=== PATIENT | female | born 1930 | race Hispanic/Latino ===

== ENCOUNTER 2017-09-16 17:31 | Observation (INO) | payer MEDICARE ==
[2017-09-16] MEDS ORDERED: ASPIRIN PO ONE (18:30)
[2017-09-16 19:28] LABS: Basophils % (Auto) 0.7 % (0.0-1.8); Eosinophils # (Auto) 0.2 K/mm3 (0.0-0.4); Eosinophils % (Auto) 2.1 % (0.0-4.3); Hematocrit 33.8 % (30.3-42.9); Hemoglobin 11.3 gm/dl (10.1-14.3); Lymphocytes # (Auto) 1.6 K/mm3 (1.2-5.4); Lymphocytes % (Auto) 22.3 % (13.4-35.0); Mean Corpuscular HGB Conc 34 % (30-34); Mean Corpuscular Hemoglobin 28 pg (28-32); Mean Corpuscular Volume 83 fl (79-97); Monocytes # (Auto) 0.5 K/mm3 (0.0-0.8); Platelet Count 166 K/mm3 (140-440); Red Blood Count 4.08 M/mm3 (3.65-5.03)
[2017-09-16 19:59] LABS: BUN/Creatinine Ratio 17; Blood Urea Nitrogen 15 mg/dL (7-17); Calcium 9.5 mg/dL (8.4-10.2); Hemolysis Index 0
--- NOTE | 2017-09-16 22:46 | Emergency Department Report ---
ED Chest Pain HPI - General Chief Complaint: Chest Pain Stated Complaint: CHEST PAIN/OFF AND ON Time Seen by Provider: 09/16/17 22:36 Source: patient, EMS Mode of arrival: Wheelchair Limitations: Physical Limitation - History of Present Illness Initial Comments: Patient is 86 years old female with history of coronary artery disease, status post CABG, hypertension and diabetes. Duration presented to the ER via EMS from our primary care doctor office after she reported chest pain. Patient stated that her chest pain started yesterday, heaviness to the left side of his chest radiated to her left upper arm. Patient also stated that she's been having some shortness of breath is that. She denied any fever or cough. MD Complaint: chest pain -: Last night Onset: during rest Pain Location: left chest Pain Radiation: LUE Severity: moderate Severity scale (0 -10): 5 Quality: heaviness - Related Data Allergies Allergy/AdvReac Type Severity Reaction Status Date / Time No Known Allergies Allergy Verified 09/16/17 22:38 Heart Score - HEART Score History: Moderately suspicious EKG: Non-specific Age: > 65 Risk factors: > 3 risk factors or hx of atherosclerotic disease Troponin: < normal limit HEART Score: 6 - Critical Actions Critical Actions: 4-6 pts:12-16.6% risk of adverse cardiac event. Should be admitted ED Review of Systems ROS: Stated complaint: CHEST PAIN/OFF AND ON Other details as noted in HPI Comment: All other systems reviewed and negative Constitutional: denies: chills, diaphoresis Respiratory: orthopnea, shortness of breath, SOB with exertion. denies: cough, wheezing Cardiovascular: chest pain, dyspnea on exertion, orthopnea, paroxysmal nocturnal dyspnea. denies: palpitations, edema, syncope Gastrointestinal: denies: abdominal pain, nausea, vomiting Genitourinary: denies: urgency, dysuria, frequency, hematuria Musculoskeletal: denies: back pain Neurological: denies: headache, weakness, numbness, paresthesias ED Past Medical Hx - Past Medical History Previous Medical History?: Yes Hx Hypertension: Yes Hx Heart Attack/AMI: Yes Hx Diabetes: Yes Hx Arthritis: Yes Additional medical history: CAD, MEMORY LOSS - Surgical History Past Surgical History?: Yes Hx Open Heart Surgery: Yes - Social History Smoking Status: Former Smoker Substance Use Type: Prescribed ED Physical Exam - General Limitations: Physical Limitation General appearance: alert, in no apparent distress - Head Head exam: Present: atraumatic, normocephalic, normal inspection - Eye Eye exam: Present: normal appearance, PERRL - ENT ENT exam: Present: normal exam, normal orophraynx, mucous membranes moist - Neck Neck exam: Present: normal inspection, full ROM. Absent: tenderness, meningismus, lymphadenopathy, thyromegaly - Respiratory Respiratory exam: Present: normal lung sounds bilaterally. Absent: respiratory distress, wheezes, rales, rhonchi, stridor, accessory muscle use, decreased breath sounds, prolonged expiratory - Cardiovascular Cardiovascular Exam: Present: irregular rhythm. Absent: systolic murmur, diastolic murmur - GI/Abdominal GI/Abdominal exam: Present: soft, normal bowel sounds. Absent: distended, tenderness, guarding, rebound, rigid, organomegaly, mass, bruit, pulsatile mass , hernia - Extremities Exam Extremities exam: Present: normal inspection, full ROM, normal capillary refill - Back Exam Back exam: Present: normal inspection, full ROM. Absent: tenderness, CVA tenderness (R), CVA tenderness (L), muscle spasm, paraspinal tenderness, vertebral tenderness, rash noted - Neurological Exam Neurological exam: Present: alert, oriented X3, CN II-XII intact, normal gait - Skin Skin exam: Present: warm, intact, normal color ED Course Vital Signs 09/16/17 18:24 Temperature 98 F Pulse Rate 76 Respiratory 20 Rate Blood Pressure 123/68 O2 Sat by Pulse 98 Oximetry ED Medical Decision Making - Lab Data Result diagrams: 09/16/17 18:57 09/16/17 18:57 - EKG Data -: EKG Interpreted by Me Rate: normal - EKG Data 09/16/17 22:46 Atrial fibrillation. - Medical Decision Making I discussed the patient is Dr. Starr Guo, she agreed to admit the patient to her service. Critical care attestation.: If time is entered above; I have spent that time in minutes in the direct care of this critically ill patient, excluding procedure time. ED Disposition Clinical Impression: Chest pain, CHF exacerbation Disposition: OP ADMIT IP TO THIS HOSP Is pt being admited?: Yes Condition: Stable Instructions: Chest Pain (ED)
[2017-09-16] MEDS ORDERED: LASIX IV ONE (23:16)
--- NOTE | 2017-09-17 00:19 | XRay Report ---
FINAL REPORT PROCEDURE: XR CHEST 1V AP TECHNIQUE: Chest radiograph anteroposterior view. CPT 58069 HISTORY: chest pain COMPARISON: No prior studies are available for comparison. FINDINGS: Heart: Heart is enlarged. There has been open heart surgery. Mediastinum/Vessels: Normal. Lungs/Pleural space: Lungs are expanded. There are no infiltrates, effusions or pneumothoraces.. Bony thorax: No acute osseous abnormality. Life support devices: None. IMPRESSION: Heart is enlarged. There has been open heart surgery. Lungs are expanded. There are no infiltrates, effusions or pneumothoraces.. .
--- NOTE | 2017-09-17 00:31 | History and Physical Report ---
History of Present Illness Date of examination: 09/17/17 History of present illness: 86-year-old woman with a history of hypertension, diabetes, coronary artery disease, memory problems comes emergency room with complaints of chest pain. The patient cannot recall when it started, it's located in the left chest which she describes as a sharp pain, intermittent in nature, unable to say how long it last for, radiating into the left arm, intensity 5/10, worse with deep breath. Admits to shortness of breath, no nausea vomiting, diaphoresis or palpitation, cant Recall having a stress status Review of systems Constitutional: no weight loss, chills Ears, eyes, nose, mouth and throat: no nasal congestion, no nasal discharge, no sinus pressure, no vision change, no red eye. Neck: No neck pain or rigidity. Cardiovascular: no palpitations Respiratory: No cough Gastrointestinal: no abdominal pain, hematochezia Genitourinary : no dysuria, frequency , no hematuria Musculoskeletal: no joint swelling or muscle ache Integumentary: no rash, no pruritis Neurological: no parathesias, no numbness, no focal weakness Endocrine: no cold or heat intolerance, no polyuria or polydipsia Hematologic/Lymphatic: no easy bruising, no easy bleeding, no gland swelling Allergic/Immunologic: no urticaria, no angioedema. PAST MEDICAL HISTORY:hypertension, diabetes, coronary artery disease PAST SURGICAL HISTORY: CABG, partial hysterectomy SOCIAL HISTORY: Denies alcohol, tobacco, drugs FAMILY HISTORY: Hypertension Medications and Allergies Allergies Allergy/AdvReac Type Severity Reaction Status Date / Time No Known Allergies Allergy Verified 09/16/17 22:38 Home Medications Medication Instructions Recorded Confirmed Last Taken Type Apixaban [Eliquis] 5 mg PO Q12HR #60 tablet 09/18/17 Unknown Rx Aspirin [Aspirin BABY CHEW TAB] 81 mg PO QDAY #30 tab.chew 09/18/17 Unknown Rx AtorvaSTATin [Lipitor] 40 mg PO QHS #30 tablet 09/18/17 Unknown Rx Lisinopril [Zestril TAB] 5 mg PO QDAY #30 tablet 09/18/17 Unknown Rx Metoprolol [Lopressor TAB] 12.5 mg PO BID #60 tablet 09/18/17 Unknown Rx Exam - Physical Exam Narrative exam: Gen. appearance: Patient lying in bed, no apparent distress HEENT: Normocephalic, atraumatic, pupils equally round and reactive to light, extraocular movement intact, and no sclericterus,. No JVD or thyromegaly or nodule,neck supple, no carotid bruit ,mucous membranes moist, no exudate or erythema Heart: S1, S2, regular rate and rhythm Lungs: Clear to auscultation bilaterally, breathing comfortable Abdomen: Positive bowel sounds, nontender, nondistended, no organomegaly Extremity: No edema, cyanosis, clubbing Skin: No rash, nodules, warm, dry Neuro: Oriented 3, cranial nerves II-12 intact, speech is fluent, motor and sensory intact - Constitutional Vitals: Temp Pulse Resp BP Pulse Ox 98 F 76 20 123/68 98 09/16/17 18:24 09/16/17 18:24 09/16/17 18:24 09/16/17 18:24 09/16/17 18:24 Results - Labs CBC & Chem 7: 09/18/17 05:10 09/18/17 05:10 Labs: Abnormal lab results 09/16/17 09/16/17 09/16/17 Range/Units 18:57 18:57 21:45 RDW 21.0 H (13.2-15.2) % Glucose 144 H (65-100) mg/dL NT-Pro-B Natriuret Pep 3858 H (0-900) pg/mL - Imaging and Cardiology EKG: image reviewed Chest x-ray: image reviewed Assessment and Plan Assessment Unstable angina Coronary artery disease Hypertension Diabetes Plan Admit to medicine Check cardiac enzymes, consult cardiology Check fingersticks initiated insulin sliding scale Continue appropriate outpatient medications DVT prophylaxis
[2017-09-17] MEDS ORDERED: D50W (25GM) Syringe IV PRN (01:14)
[2017-09-17] MEDS ORDERED: TYLENOL PO PRN (01:14)
[2017-09-17] MEDS ORDERED: SODIUM CHLORIDE FLUSH SYRINGE 10 ML IV PRN (01:14)
[2017-09-17] MEDS ORDERED: ZOFRAN IV PRN (01:14)
[2017-09-17 05:46] LABS: Basophils % (Auto) 0.8 % (0.0-1.8); Eosinophils # (Auto) 0.2 K/mm3 (0.0-0.4); Eosinophils % (Auto) 3.1 % (0.0-4.3); Hematocrit 33.3 % (30.3-42.9); Hemoglobin 11.2 gm/dl (10.1-14.3); Lymphocytes # (Auto) 1.5 K/mm3 (1.2-5.4); Lymphocytes % (Auto) 25.1 % (13.4-35.0); Mean Corpuscular HGB Conc 34 % (30-34); Mean Corpuscular Hemoglobin 28 pg (28-32); Mean Corpuscular Volume 83 fl (79-97); Monocytes # (Auto) 0.5 K/mm3 (0.0-0.8); Monocytes % (Auto) 8.9 % (0.0-7.3); Platelet Count 149 K/mm3 (140-440); Red Blood Count 4.02 M/mm3 (3.65-5.03)
[2017-09-17 05:48] LABS: Red Cell Distribution Width 20.7 % (13.2-15.2)
[2017-09-17 06:00] LABS: Calcium 9.5 mg/dL (8.4-10.2)
[2017-09-17] MEDS ORDERED: LEXISCAN IV ONE ×2 (09:01→09:05)
--- NOTE | 2017-09-17 09:33 | Consultation ---
History of Present Illness Consult date: 09/17/17 Requesting physician: MARISELA [place] Consult reason: chest pain History of present illness: This is a 86-year-old female with history of hypertension hyperlipidemia coronary artery disease status post myocardial infarction with PCI to LAD in 2000 patient is a poor historian. Patient states saw a physician yesterday was having chest pain sharp in nature intermediately for last few days not exertional. Patient states that also have difficulty eating and we have drink water and would have chest pain and then with water it would go away. No aggravating or relieving factors with exertional type chest pain sharp in nature no radiation on the left-sided chest underneath her breast no nausea no vomiting no syncope patient takes care of her grandson. Patient was admitted for chest pain with negative troponins here for stress test Past History Past Medical History: CAD (PC had LAD in 2000), hypertension, hyperlipidemia Past Surgical History: hysterectomy Social history: denies: no significant social history Family history: denies: no significant family history Medications and Allergies Allergies Allergy/AdvReac Type Severity Reaction Status Date / Time No Known Allergies Allergy Verified 09/16/17 22:38 Home Medications Medication Instructions Recorded Confirmed Last Taken Type No Known Home Medications [No 09/17/17 09/17/17 Unknown History Reported Home Medications] Active Meds: Active Medications Acetaminophen (Tylenol) 650 mg PO Q4H PRN PRN Reason: Pain MILD(1-3)/Fever >100.5/MEYER Dextrose (D50w (25gm) Syringe) 50 ml IV PRN PRN PRN Reason: Hypoglycemia Enoxaparin Sodium (Lovenox) 30 mg SUB-Q QDAY [place] Ondansetron HCl (Zofran) 4 mg IV Q8H PRN PRN Reason: Nausea And Vomiting Sodium Chloride (Sodium Chloride Flush Syringe 10 Ml) 10 ml IV BID WESTON Sodium Chloride (Sodium Chloride Flush Syringe 10 Ml) 10 ml IV PRN PRN PRN Reason: LINE FLUSH Review of Systems All systems: negative (as per hpi) Physical Examination Vital Signs Temp Pulse Resp BP Pulse Ox 98 F 76 20 123/68 98 09/16/17 18:24 09/16/17 18:24 09/16/17 18:24 09/16/17 18:24 09/16/17 18:24 General appearance: no acute distress, well-nourished HEENT: Positive: PERRL, Mucus Membranes Moist Neck: Positive: neck supple, trachea midline Cardiac: Positive: Reg Rate and Rhythm, S1/S2. Negative: Audible Murmur Lungs: Positive: clear to auscultation, Normal Breath Sounds Neuro: Positive: Grossly Intact Abdomen: Positive: Soft, Active Bowel Sounds. Negative: Tender, Distended Female genitourinary: deferred Skin: Positive: Clear Incision: Cardiac Cath Site Musculoskeletal: No Pain, Normal Range of Motion Extremities: Present: normal. Absent: edema Results 09/17/17 04:54 09/17/17 04:54 CBC 09/16/17 09/17/17 Range/Units 18:57 04:54 WBC 7.2 5.9 (4.5-11.0) K/mm3 RBC 4.08 4.02 (3.65-5.03) M/mm3 Hgb 11.3 11.2 (10.1-14.3) gm/dl Hct 33.8 33.3 (30.3-42.9) % Plt Count 166 149 (140-440) K/mm3 Lymph # 1.6 1.5 (1.2-5.4) K/mm3 [place] # 0.5 0.5 (0.0-0.8) K/mm3 Eos # 0.2 0.2 (0.0-0.4) K/mm3 Baso # 0.0 0.0 (0.0-0.1) K/mm3 Comprehensive Metabolic Panel 09/16/17 09/17/17 Range/Units 18:57 04:54 Sodium 139 141 (137-145) mmol/L Potassium 4.3 3.9 (3.6-5.0) mmol/L Chloride 101.0 101.1 (98-107) mmol/L Carbon Dioxide 23 22 (22-30) mmol/L BUN 15 16 (7-17) mg/dL Creatinine 0.9 0.9 (0.7-1.2) mg/dL Glucose 144 H 159 H (65-100) mg/dL Calcium 9.5 9.5 (8.4-10.2) mg/dL - Imaging and Cardiology Echo: pending EKG interpretations - Telemetry EKG Rhythm: Sinus Rhythm (sinus rhythm with mobitz type I LVH nonspecific ST-T's ) Assessment and Plan Chest pain possible GI Hypertension Hyperlipidemia Recommend following up stress and echo restart aspirin statin therapy and imdur pt states taking, hold off lopressor in view of mobitz type 1
[2017-09-17] MEDS ORDERED: IMDUR PO SCH (10:00)
[2017-09-17] MEDS ORDERED: LOVENOX SUB-Q SCH (10:00)
--- NOTE | 2017-09-17 10:07 | Progress Note ---
Assessment and Plan Assessment and plan: Chest pain. Cardiology following. Follow-up serial EKG and cardiac enzymes. Stress test and echocardiogram pending. Coronary artery disease. As above. Hypertension. Resume antihypertensive medications. Diabetes mellitus type 2. Continue Accu-Cheks and sliding scale insulin. Hyperlipidemia. Continue atorvastatin. History Interval history: No new issues overnight. Hospitalist Physical - Constitutional Vitals: Temp Pulse Resp BP Pulse Ox 98.4 F 95 H 16 140/48 93 09/17/17 07:23 09/17/17 07:23 09/17/17 07:23 09/17/17 07:23 09/17/17 07:23 General appearance: Present: no acute distress, well-nourished - EENT Eyes: Present: PERRL, EOM intact ENT: hearing intact, clear oral mucosa, dentition normal - Neck Neck: Present: supple, normal ROM - Respiratory Respiratory effort: normal Respiratory: bilateral: CTA - Cardiovascular Rhythm: regular Heart Sounds: Present: S1 & S2. Absent: gallop, rub - Extremities Extremities: no ischemia, No edema, Full ROM - Abdominal General gastrointestinal: soft, non-tender, non-distended, normal bowel sounds - Integumentary Integumentary: Present: clear, warm, dry - Neurologic Neurologic: CNII-XII intact, moves all extremities Results - Labs CBC & Chem 7: 09/17/17 04:54 09/17/17 04:54 Labs: Laboratory Last Values WBC 5.9 K/mm3 (4.5-11.0) 09/17/17 04:54 RBC 4.02 M/mm3 (3.65-5.03) 09/17/17 04:54 Hgb 11.2 gm/dl (10.1-14.3) 09/17/17 04:54 Hct 33.3 % (30.3-42.9) 09/17/17 04:54 MCV 83 fl (79-97) 09/17/17 04:54 MCH 28 pg (28-32) 09/17/17 04:54 MCHC 34 % (30-34) 09/17/17 04:54 RDW 20.7 % (13.2-15.2) H 09/17/17 04:54 Plt Count 149 K/mm3 (140-440) 09/17/17 04:54 Lymph % (Auto) 25.1 % (13.4-35.0) 09/17/17 04:54 [place] % (Auto) 8.9 % (0.0-7.3) H 09/17/17 04:54 Eos % (Auto) 3.1 % (0.0-4.3) 09/17/17 04:54 Baso % (Auto) 0.8 % (0.0-1.8) 09/17/17 04:54 Lymph # 1.5 K/mm3 (1.2-5.4) 09/17/17 04:54 [place] # 0.5 K/mm3 (0.0-0.8) 09/17/17 04:54 Eos # 0.2 K/mm3 (0.0-0.4) 09/17/17 04:54 Baso # 0.0 K/mm3 (0.0-0.1) 09/17/17 04:54 Seg Neutrophils % 62.1 % (40.0-70.0) 09/17/17 04:54 Seg Neutrophils # 3.7 K/mm3 (1.8-7.7) 09/17/17 04:54 D-Dimer 476.75 ng/mlDDU (0-234) H 09/17/17 01:26 Sodium 141 mmol/L (137-145) 09/17/17 04:54 Potassium 3.9 mmol/L (3.6-5.0) 09/17/17 04:54 Chloride 101.1 mmol/L (98-107) 09/17/17 04:54 Carbon Dioxide 22 mmol/L (22-30) 09/17/17 04:54 Anion Gap 22 mmol/L 09/17/17 04:54 BUN 16 mg/dL (7-17) 09/17/17 04:54 Creatinine 0.9 mg/dL (0.7-1.2) 09/17/17 04:54 Estimated GFR 60 ml/min 09/17/17 04:54 BUN/Creatinine Ratio 18 % 09/17/17 04:54 Glucose 159 mg/dL (65-100) H 09/17/17 04:54 POC Glucose 189 (70-105) H 09/17/17 06:45 Calcium 9.5 mg/dL (8.4-10.2) 09/17/17 04:54 Troponin T < 0.010 ng/mL (0.00-0.029) 09/17/17 00:12 NT-Pro-B Natriuret Pep 3858 pg/mL (0-900) H 09/16/17 21:45
--- NOTE | 2017-09-17 12:31 | Event Note ---
Date: 09/17/17 Pt's granddaughter, Claire Marie, spoken with via telephone. She reports that pt underwent CABG x 3 at [facility] in 1968. She reports that pt has not seen any doctors in many years and denies any knowledge of prior atrial fibrillation, atrial flutter, heart failure, CVA, bleeding. She states that pt lives alone and is very independent with no ambulatory issues or physical limitations. Systemic anticoagulation is recommended in setting of atrial fibrillation. Indications, potential risks and benefits of systemic AC reviewed with pt and pt's granddaughter and they are agreeable to correction OAC. Will initiate Eliquis 5mg BID. Await echo results. Lexiscan MPI stress test this AM was negative for ischemia, EF 35-40%. Repeat labwork in AM. Elian ALCANTAR NP / DR. DORSEY
[2017-09-17] MEDS: ZESTRIL PO SCH (13:59)
[2017-09-17] MEDS: LOPRESSOR PO SCH ×2 (13:59→22:08)
[2017-09-17] MEDS: LOVENOX SUB-Q SCH (13:59)
[2017-09-17] MEDS: BABY ASPIRIN PO SCH (13:59)
[2017-09-17] MEDS: ELIQUIS PO SCH (22:07)
[2017-09-17] MEDS: SODIUM CHLORIDE FLUSH SYRINGE 10 ML IV SCH (22:08)
[2017-09-18 05:55] LABS: Basophils # (Auto) 0.1 K/mm3 (0.0-0.1); Basophils % (Auto) 0.9 % (0.0-1.8); Eosinophils # (Auto) 0.2 K/mm3 (0.0-0.4); Eosinophils % (Auto) 3.2 % (0.0-4.3); Hemoglobin 11.1 gm/dl (10.1-14.3); Lymphocytes # (Auto) 1.7 K/mm3 (1.2-5.4); Lymphocytes % (Auto) 29.7 % (13.4-35.0); Mean Corpuscular HGB Conc 33 % (30-34); Mean Corpuscular Hemoglobin 27 pg (28-32); Mean Corpuscular Volume 84 fl (79-97); Monocytes # (Auto) 0.5 K/mm3 (0.0-0.8); Monocytes % (Auto) 8.8 % (0.0-7.3); Platelet Count 152 K/mm3 (140-440); Red Blood Count 4.07 M/mm3 (3.65-5.03)
[2017-09-18 06:04] LABS: Red Cell Distribution Width 20.1 % (13.2-15.2)
[2017-09-18 06:15] LABS: BUN/Creatinine Ratio 21; Blood Urea Nitrogen 17 mg/dL (7-17); Calcium 9.3 mg/dL (8.4-10.2); Hemolysis Index 3
[2017-09-18] MEDS: BABY ASPIRIN PO SCH (10:21)
[2017-09-18] MEDS: SODIUM CHLORIDE FLUSH SYRINGE 10 ML IV SCH ×2 (10:21→11:20)
[2017-09-18] MEDS: ELIQUIS PO SCH (10:22)
[2017-09-18] MEDS: LOVENOX SUB-Q SCH (10:23)
[2017-09-18] MEDS: ZESTRIL PO SCH (10:24)
--- NOTE | 2017-09-18 10:57 | Discharge Summary ---
<CONNER YARBROUGH - Last Filed: 09/18/17 14:04> Providers - Providers Date of Admission: 09/17/17 00:31 Attending physician: JAYLENE CANO 09/17/17 01:14 Consult to Physician [CONS] Routine Comment: Consulting Provider: BARBARA RAMEY Physician Instructions: Reason For Exam: ua 09/17/17 04:20 Consult to Case Management [CONS] Routine Services Needed at Discharge: Drawer In Stitch Bonding Machine Notified:: Family issues Was contact made?: No Primary care physician: ABIGAIL SAVAGE Hospitalization Condition: Stable Hospital course: Patient is an 86-year-old woman who presented to the emergency department with complaints of chest pain. Patient underwent cardiac workup which began with serial cardiac enzymes that were negative. Cardiology services was consulted and Ekg revealed afib with controlled rate, stress test showed no significant ischemia, echo ef 35-40% with anterior wall hypokinesis. Patient was initiated on Eliquis 5mg BID along with Lopressor, lisinopril, aspirin and statin therapy. D-dimer was elevated and CTA chest revealed Patient was clinically stable for discharge from cardiac standpoint with no further workup recommended at this time and instructed to follow up with primary care provider within 1 week of discharged. Discharge diagnoses Chest pain Hypertension Diabetes mellitus type 2 Hyperlipidemia Atrial fibrillation Disposition: - TO HOME OR SELFCARE Time spent for discharge: 32 minutes Core Measure Documentation - Palliative Care Palliative Care/ Comfort Measures: Not Applicable - Core Measures Any of the following diagnoses?: none Exam - Constitutional Vitals: Temp Pulse Resp BP Pulse Ox 98.3 F 68 18 129/60 94 09/18/17 07:34 09/18/17 07:34 09/18/17 07:34 09/18/17 07:34 09/18/17 07:34 General appearance: Present: no acute distress, well-nourished - EENT Eyes: Present: PERRL ENT: hearing intact, clear oral mucosa - Neck Neck: Present: supple, normal ROM - Respiratory Respiratory effort: normal Respiratory: bilateral: CTA - Cardiovascular Heart Sounds: Present: S1 & S2. Absent: rub, click - Extremities Extremities: pulses symmetrical, No edema Peripheral Pulses: within normal limits - Abdominal General gastrointestinal: Present: soft, non-tender, non-distended, normal bowel sounds - Integumentary Integumentary: Present: clear, warm, dry - Musculoskeletal Musculoskeletal: gait normal, strength equal bilaterally - Psychiatric Psychiatric: appropriate mood/affect, intact judgment & insight - Neurologic Neurologic: CNII-XII intact, moves all extremities Plan Follow up with: ABIGAIL SAVAGE MD [Primary Care Provider] - 3-5 Days RENATA LOZADA NP [Advanced Practice Nurse] - 7 Days ([facility], [address], Renata Lozada NP, on 09/30/2017 @ 1:00PM. ) Prescriptions: AtorvaSTATin [Lipitor] 40 mg PO QHS #30 tablet Apixaban [Eliquis] 5 mg PO Q12HR #60 tablet Aspirin [Aspirin BABY CHEW TAB] 81 mg PO QDAY #30 tab.chew Lisinopril [Zestril TAB] 5 mg PO QDAY #30 tablet Metoprolol [Lopressor TAB] 12.5 mg PO BID #60 tablet Pending Studies DC pending negative CTA chest <JAYLENE CANO - Last Filed: 09/19/17 07:41> Providers - Providers Date of Admission: 09/17/17 00:31 Attending physician: JAYLENE CANO 09/17/17 01:14 Consult to Physician [CONS] Routine Comment: Consulting Provider: BARBARA RAMEY Physician Instructions: Reason For Exam: ua 09/17/17 04:20 Consult to Case Management [CONS] Routine Services Needed at Discharge: Drawer In Stitch Bonding Machine Notified:: Family issues Was contact made?: No Primary care physician: ABIGAIL SAVAGE Hospitalization Hospital course: I saw and evaluated the patient. I agree with the findings and the plan of care as documented in the Nurse Practitioner's~note, with the following corrections and additions. Exam - Constitutional Vitals: Temp Pulse Resp BP Pulse Ox 97.6 F 55 L 18 127/58 97 09/18/17 17:21 09/18/17 17:21 09/18/17 17:21 09/18/17 17:21 09/18/17 17:21
--- NOTE | 2017-09-18 11:14 | Progress Note ---
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 Pt for chest CTA today to r/o PE. Currently stable cardiac status. Cont present cardiac regimen, including ASA, lipitor, eliquis, lopressor, lisinopril. Pending chest CTA is negative for PE, pt may discharge home from cardiology standpoint. Follow up in our [place] office with Renata Pruett NP, on 09/30/2017 @ 1:00PM. The patient has been seen in conjunction with Dr. Rivera who agrees with the assessment and plan of care. Subjective Date of service: 09/18/17 Principal diagnosis: AFib, cp Interval history: Pt sitting comfortably at bedside, no current cardiac complaints. telemetry reviewed - pt remains in AFib, had SVR overnight and this AM while sleeping, currently with HR in 100s with ambulation around the room. BPs stable. Pt states she is ready to go home today. Objective Last Vital Signs Temp 98.3 F 09/18/17 07:34 Pulse 68 09/18/17 07:34 Resp 18 09/18/17 07:34 BP 129/60 09/18/17 07:34 Pulse Ox 94 09/18/17 07:34 - Physical Examination General: No Apparent Distress HEENT: Positive: PERRL, Mucus Membranes Moist Neck: Positive: neck supple, trachea midline Cardiac: Positive: irregularly irregular, S1/S2 Lungs: Positive: clear to auscultation Neuro: Positive: Grossly Intact Abdomen: Positive: Soft, Active Bowel Sounds. Negative: Tender, Distended Skin: Positive: Clear Incision: Cardiac Cath Site Musculoskeletal: No Pain, Normal Range of Motion Extremities: Present: normal. Absent: edema - Labs and Meds CBC 09/18/17 Range/Units 05:10 WBC 5.8 (4.5-11.0) K/mm3 RBC 4.07 (3.65-5.03) M/mm3 Hgb 11.1 (10.1-14.3) gm/dl Hct 34.0 (30.3-42.9) % Plt Count 152 (140-440) K/mm3 Lymph # 1.7 (1.2-5.4) K/mm3 [place] # 0.5 (0.0-0.8) K/mm3 Eos # 0.2 (0.0-0.4) K/mm3 Baso # 0.1 (0.0-0.1) K/mm3 Comprehensive Metabolic Panel 09/18/17 Range/Units 05:10 Sodium 139 (137-145) mmol/L Potassium 4.1 (3.6-5.0) mmol/L Chloride 98.7 (98-107) mmol/L Carbon Dioxide 24 (22-30) mmol/L BUN 17 (7-17) mg/dL Creatinine 0.8 (0.7-1.2) mg/dL Glucose 168 H (65-100) mg/dL Calcium 9.3 (8.4-10.2) mg/dL - Imaging and Cardiology EKG: image reviewed Echo: report reviewed (EF 30-35%, LA mildly dilated, RV systolic function mod reduced, mod MR, mild TR, RVSP 23mmHg) - Telemetry EKG Rhythm: Atrial Fibrillation
[2017-09-18] MEDS: LOPRESSOR PO SCH (11:23)
--- NOTE | 2017-09-18 13:11 | Treadmill Report ---
PROCEDURE: NUCLEAR STUDY READING PHYSICIAN: Adelso Galeas MD REASON FOR STUDY: Chest pain. IMAGING PROTOCOL: The patient received 10 mCi of Technetium 99m Tetrofosmin for resting image and 28 mCi of Technetium 99m Tetrofosmin for stress imaging. The imaging for the whole procedure was completed 30-90 minutes following the initial injection of Technetium 99m tetrofosmin. The SPECT imaging in the 180 degree arc was performed in the right anterior oblique projection. Computerized reconstruction of the images was performed for analysis. IMAGING RESULTS: Normal cavity size from stress to rest. Normal distribution of radionuclide in the anterior, inferior, septal, and apical regions. Gated SPECT was not done secondary to atrial fibrillation. SUMMARY: 1. Negative Lexiscan EKG. 2. No significant stress-induced ischemia with normal perfusion in anterior, inferior, septal, and apical regions. Gating was not done secondary to atrial fibrillation and suggests an echocardiogram for quantification LV function. JOB# [id number] PIERRE/RENETTA
[2017-09-18 17:48] VITALS: BP 127/58
--- NOTE | 2017-09-18 18:15 | Cat Scan Report ---
FINAL REPORT EXAM: CT ANGIO CHEST HISTORY: elevated d dimer TECHNIQUE: CT chest CT angiogram with reconstructions PRIORS: None. FINDINGS: There is no evidence of filling defect within the central pulmonary vasculature to suggest the presence of acute pulmonary embolus. No evidence of mediastinal pathologic lymph node enlargement Heart and great vessels are unremarkable. The aorta is normal in caliber. No focal pulmonary infiltrate identified. No pleural fluid collection seen. No acute pulmonary abnormality noted. Visualized portion of the upper abdomen demonstrates no acute change. IMPRESSION: Negative. No CT evidence of acute pulmonary embolus
--- NOTE | 2017-09-25 16:34 | Query- Chest Pain ---
Nicholas Watters____Freddy Date: 09/25/17 Mickey/CDS:___Sheila / Rad Phone#:___[phone] Exercise your independent professional judgment when responding to query. Questions asked do not imply a particular answer is desired or expected. We greatly appreciate your clarification on this issue. Clinical Documentation States: 86 year old female was admitted on 09/17/17 The discharge summary (Rolando) states " Patient is an 86-year-old woman who presented to the emergency department with complaints of chest pain. Patient underwent cardiac workup which began with serial cardiac enzymes that were negative. Cardiology services was consulted and Ekg revealed afib with controlled rate, stress test showed no significant ischemia, echo ef 35-40% with anterior wall hypokinesis. Discharge diagnoses Chest pain " Please document the etiology of Chest Pain: [ ] Myocardial Infarction [ ] Pneumonia [ ] Mediastinitis [ ] Costochondritis [ ] Pulmonary Embolism [ ] Coronary Artery Disease [ ] GERD [ ] Other: [ ] Comment/Explanation: Present on Admission: [ ] Yes (Y) [ ] Clinically undeterminable (W) [ ] No(N) Please document response in your Progress Notes and/or Discharge Summary and indicate if the condition was present on admission. KYLER
--- NOTE | 2017-09-25 16:38 | Query- Heart Failure ---
Nicholas Watters____Freddy Date:____09/25/17 Patient Admitting Representative/CDS:____Sheila / Rad Phone#:___[phone] Exercise your independent professional judgment when responding to query. Questions asked do not imply a particular answer is desired or expected. We greatly appreciate your clarification on this issue. Clinical Documentation States: 86 year old female was admitted on 09/17/17 The discharge summary (Rolando) states " Patient is an 86-year-old woman who presented to the emergency department with complaints of chest pain. Cardiology services was consulted and Ekg revealed afib with controlled rate, stress test showed no significant ischemia, echo ef 35-40% with anterior wall hypokinesis. " Clinical Findings Show: BNP: 3858 Medications: IV flurosemide If possible, Please Clarify if you mean: Acuity: [ ] Acute [ ] Acute on Chronic [ ] Chronic Type: [ ] Systolic Heart Failure [ ] Diastolic Heart Failure [ ] Combined Heart Failure [ ] Other: Present on Admission: [ ] Yes (Y) [ ] Clinically undeterminable (W) [ ] No (N) Please also document response in your Progress Notes and/or Discharge Summary and indicate if the condition was present on admission. FRANKOD
== END 2017-09-18 18:24 | disposition home or self-care (01) ==
LOC: ED 17:31 → 4A 09-17 00:31 → INTOOBSV 09-17 00:31
PROVIDERS: ADMIT Internal Medicine; ATTEND Hospitalist
DX: I25.110 Atherosclerotic heart disease of native coronary artery with unstable angina pectoris (principal); I10 Essential (primary) hypertension; E11.9 Type 2 diabetes mellitus without complications; I25.2 Old myocardial infarction; Z87.891 Personal history of nicotine dependence; Z95.1 Presence of aortocoronary bypass graft; Z82.49 Family history of ischemic heart disease and other diseases of the circulatory system; Z90.711 Acquired absence of uterus with remaining cervical stump
CPT/HCPCS: 36415; 71045; 71275; 78452; 80048; 82962; 83880; 84484; 85025; 85379; 93005; 93010; 93017; 93306; 96372; 96374; 99285; A9270; A9502; G0378; J1650; J1940; J2785; Q9967

== ENCOUNTER 2018-11-17 01:09 | Emergency (ER) | payer MEDICARE ==
[2018-11-17] MEDS ORDERED: ADRENALIN ONE (01:10)
--- NOTE | 2018-11-17 01:33 | Emergency Department Report ---
HPI - General Time Seen by Provider: 11/17/18 01:30 - HPI HPI: Room 21 The patient is an 87-year-old female presenting with chief complaint of cardiac arrest. Per EMS the patient told her granddaughter she is about to and then was witnessed taking her last breath. EMS was called and arrived on scene at 00:46. Per EMS the patient was in asystole and remained in asystole throughout transport. Patient was intubated with a Aki airway by EMS. Upon arrival to the ED the Aki airway was removed and the patient was intubated with a 7.0 ET tube by myself. ACLS protocols were continued without return of spontaneous circulation Location: Cardiovascular system Duration: [See above] Quality: [See above] Severity: [See above] Modifying factors: [see above] Context: [see above] Mode of transportation: [not driving] ED Past Medical Hx - Past Medical History Hx Hypertension: Yes Hx Heart Attack/AMI: Yes Hx Congestive Heart Failure: Yes Hx Diabetes: Yes Hx Arthritis: Yes Additional medical history: CAD, MEMORY LOSS - Surgical History Hx Open Heart Surgery: Yes - Family History Family history: no significant - Social History Smoking Status: Unknown if ever smoked Substance Use Type: None - Medications Home Medications: Home Medications Medication Instructions Recorded Confirmed Last Taken Type Lisinopril [Zestril TAB] 5 mg PO QDAY #30 tablet 09/18/17 11/06/17 Unknown Rx Metoprolol [Lopressor TAB] 12.5 mg PO BID #60 tablet 09/18/17 11/06/17 Unknown Rx Acetaminophen [Acetaminophen TAB] 650 mg PO Q4H PRN #30 tablet 11/07/17 Unknown Rx Apixaban [Eliquis] 5 mg PO Q12HR #60 tablet 11/07/17 Unknown Rx Clopidogrel [Plavix] 75 mg PO DAILY #30 11/07/17 11/06/17 Unknown Rx Lispro Insulin [HumaLOG] 1 dose SUB-Q ACHS #30 units 11/07/17 Unknown Rx Pravastatin [Pravachol] 40 mg PO QHS #30 11/07/17 11/06/17 Unknown Rx Sulfamethoxazole/Trimethoprim 1 each PO Q12HR #12 tablet 11/07/17 Unknown Rx [Bactrim DS TAB] ED Review of Systems ROS: Stated complaint: CARDIAC ARREST Other details as noted in HPI Comment: Unobtainable due to pts medical conditions Physical Exam - Physical Exam Physical Exam: GENERAL: The patient is well-developed well-nourished female receiving chest compressions from EMS and the Ambu bag via Aki airway. [] HEENT: Normocephalic. Atraumatic. NECK: Trachea midline CHEST/LUNGS: No spontaneous respirations. Breath sounds equal bilaterally with bagging after intubation by myself HEART/CARDIOVASCULAR: No heart sounds. Asystole on monitor ABDOMEN: There is no abdominal distention. SKIN: There is no rash. There is no edema. There is no diaphoresis. NEURO: GCS 3T MUSCULOSKELETAL: There is no evidence of acute injury. - Intubation Time Out Performed: No Laryngoscope: Lissa Size: 3 ET Tube Size: 7 Tube Secured Depth (cm): 21 Tube Secured Location: lips Tube Placement Confirmation: visualized tube passing t, equal breath sounds bilat, no breath sounds over epi, confirmation by capnometr Patient Tolerated Procedure: no complications Intubation Complications: none ED Medical Decision Making - Differential Diagnosis cardiac arrest Critical care attestation.: If time is entered above; I have spent that time in minutes in the direct care of this critically ill patient, excluding procedure time. ED Disposition Clinical Impression: Cardiac arrest Disposition: DC-20 Is pt being admited?: No Does the pt Need Aspirin: No Condition: Poor Time of Disposition: 01:33 (patient )
== END 2018-11-17 03:00 ==
LOC: ED 01:09
DX: I46.9 Cardiac arrest, cause unspecified (principal); I11.0 Hypertensive heart disease with heart failure; I50.9 Heart failure, unspecified; I25.2 Old myocardial infarction; E11.9 Type 2 diabetes mellitus without complications; M19.90 Unspecified osteoarthritis, unspecified site; I25.10 Atherosclerotic heart disease of native coronary artery without angina pectoris; Z79.899 Other long term (current) drug therapy
CPT/HCPCS: 31500; 99285; J0171